=== PATIENT | male | born 1940 | race Caucasian/White ===

== ENCOUNTER 2023-05-06 11:16 | Emergency (ER) | payer MEDICARE ==
[2023-05-06] MEDS ORDERED: BUFFERED LIDOCAINE 10 ML SYRINGE SUBQ STA (11:57)
--- NOTE | 2023-05-06 11:59 | ED Physician Documentation ---
PD HPI WOUND RECHECK - Stated complaint Stated Complaint: LT FINGER LAC - Chief complaint Chief Complaint: Wound - Histroy obtained from History obtained from: Patient - Additional information Additional information: 83-year-old gentleman who is relatively healthy with history of remote bypass is in the process of moving up from [place]. About 3 days ago he cut himself while trimming his nails and developed an infection of the left third finger. He was placed on doxycycline and amoxicillin and has improved slightly but worsened as he had misplaced the antibiotics, but has since found them. There is minimal pain. PD PAST MEDICAL HISTORY - Past Medical History Past Medical History: Yes Cardiovascular: Other - Past Surgical History Past Surgical History: Yes Cardiovascular: CABG - Present Medications Home Medications: Ambulatory Orders Medication Instructions Recorded Confirmed cephALEXin [Keflex] 500 mg PO Q6H #28 cap 05/06/23 clindamycin HCL [Cleocin HCl] 300 mg PO QID #28 cap 05/06/23 - Allergies Allergies/Adverse Reactions: Allergies Allergy/AdvReac Type Severity Reaction Status Date / Time No Known Drug Allergies Allergy Verified 05/06/23 11:29 - Social History Does the pt smoke?: No Smoking Status: Never smoker Does the pt drink ETOH?: Yes Does the pt have substance abuse?: No - Immunizations Immunizations are current?: Yes - POLST Patient has POLST: No PD ED PE NORMAL - Vitals Vital signs reviewed: Yes - General General: Alert and oriented X 3, No acute distress - Extremities Extremities: Other (The left third finger is infected from the middle of the middle finger distally with shallow dorsal abscess. He is unable to bend at the DIP but does not have significant pain with range of motion of the DIP. No sign of flexor tenosynovitis.) - Neuro Neuro: Alert and oriented X 3 Results - Vitals Vitals: Vital Signs - 24 hr 05/06/23 11:23 Temperature 36.6 C Heart Rate 87 Respiratory 16 Rate Blood Pressure 140/60 H O2 Saturation 98 Oxygen O2 Source Room air Procedures - Abscess I&D (location) L 3rd finger Preparation: Lidocaine 1% (Digital block with buffered lidocaine with excellent anesthesia) Incision: Incised with scalpel (There was necrotic skin skin dorsally which was debrided with scalpel and scissors. A culture was done. It was not a deep abscess, it was just of the subcutaneous tissue. There was no apparent subungual component.) Other: Pt tolerated well (Dressed with Xeroform and tube gauze), Antibiotic prescribed (Ancef 1 g IM here and p.o. clindamycin) PD Medical Decision Making - ED course ED course: 83-year-old with a shallow but necrotic abscess of the dorsum of the left third finger. He was on doxycycline but misplaced it for a time and only took about 3 out of 6 doses so far. There is no evidence of osteomyelitis on the x-ray. There is gas but I do not think this represents a necrotizing soft tissue infection because he has minimal pain and the gas can be explained as it was already open a bit. Departure - Departure Disposition: 01 Home, Self Care Clinical Impression: Abscess of finger of left hand Condition: Good Record reviewed to determine appropriate education?: Yes Instructions: ED Abscess IandD Prescriptions: clindamycin HCL [Cleocin HCl] 300 mg PO QID #28 cap cephALEXin [Keflex] 500 mg PO Q6H #28 cap Comments: I sent the prescriptions for antibiotics electronically to the [facility] in [place]. Please fill them and start them tonight. I would like to see you for a wound check tomorrow sometime after 11:30 AM. Return sooner if worse. Keep it elevated is much as possible. We are performing a wound culture, the results should be done in 48-72 hours. If antibiotic change is necessary we will call you. Return if worse in the meantime, especially if you develop increased pain, fevers, cannot keep down the medication. Otherwise follow-up with your physician in approximately 2-3 days. Forms: PCP List
--- NOTE | 2023-05-06 12:21 | XRAY Report ---
PROCEDURE: Finger(s) LT INDICATIONS: 3rd finger infection TECHNIQUE: AP hand, 2 views of the third finger(s) acquired. COMPARISON: None. FINDINGS: Bones: No fractures or dislocations. No suspicious bony lesions. Age-appropriate degenerative stephenson es are seen. Soft tissues: Soft tissue swelling is seen of the third finger. No radiopaque foreign bodies are see n. Apparent soft tissue tissue gas can be seen along the proximal aspect of the third finger. IMPRESSION: Third finger soft tissue swelling, without an acute focal bony abnormality seen. Apparent soft tissue tissue gas can be seen along the proximal aspects of the third finger. If there is strong clinical concern for developing osteomyelitis in this patient with this given hist ory, then please consider a dedicated MRI (without and with contrast) for further evaluation (assumin g that there is no contraindication). Reviewed by: Álvaro Portillo MD on 05/06/2023 11:20 AM [facility] Approved by: Álvaro Portillo MD on 05/06/2023 11:20 AM [facility] Station ID: [id number]
[2023-05-06] MEDS ORDERED: ceFAZolin 1 GM VIAL IM STA (12:26)
[2023-05-06] MEDS ORDERED: SULFAMETH/TRIMETH DS 800/160 MG TABLET PO STA (12:26)
[2023-05-06 13:08] VITALS: BP 136/50; O2SAT 95
== END 2023-05-06 12:58 | disposition home or self-care (01) ==
LOC: ED 11:16
DX: L02.512 Cutaneous abscess of left hand (principal)
CPT/HCPCS: 11000; 73140; 87070; 87181; 87205; 96372; 99283; 99284; A9270

== ENCOUNTER 2023-05-07 12:41 | Emergency (ER) | payer MEDICARE ==
[2023-05-07 12:59] VITALS: BP 139/60; O2SAT 99
--- NOTE | 2023-05-07 13:10 | ED Physician Documentation ---
PD HPI WOUND RECHECK - Stated complaint Stated Complaint: LT FINGER WOUND CHECK - Chief complaint Chief Complaint: Wound - Histroy obtained from History obtained from: Patient - Additional information Additional information: I saw him yesterday for a broad shallow abscess of the left third finger and he returns as requested for a scheduled wound check. He feels improved. PD PAST MEDICAL HISTORY - Past Medical History Past Medical History: Yes Cardiovascular: Other - Past Surgical History Past Surgical History: Yes Cardiovascular: CABG - Present Medications Home Medications: Ambulatory Orders Medication Instructions Recorded Confirmed cephALEXin [Keflex] 500 mg PO Q6H #28 cap 05/06/23 clindamycin HCL [Cleocin HCl] 300 mg PO QID #28 cap 05/06/23 - Allergies Allergies/Adverse Reactions: Allergies Allergy/AdvReac Type Severity Reaction Status Date / Time No Known Drug Allergies Allergy Verified 05/06/23 11:29 - Social History Does the pt smoke?: No Smoking Status: Never smoker Does the pt drink ETOH?: Yes Does the pt have substance abuse?: No - Immunizations Immunizations are current?: Yes - POLST Patient has POLST: No PD ED PE NORMAL - Vitals Vital signs reviewed: Yes - General General: Alert and oriented X 3, No acute distress - Extremities Extremities: Other (The initial dressing was removed and overall the finger looks less cellulitic. There were a few other areas of necrotic skin that were sharply debrided, but much less than yesterday. It was redressed with Xeroform and tube gauze.) - Neuro Neuro: Alert and oriented X 3, Normal speech Results - Vitals Vitals: Vital Signs - 24 hr 05/07/23 12:44 Temperature 36.8 C Heart Rate 82 Respiratory 16 Rate Blood Pressure 139/60 H O2 Saturation 99 Oxygen O2 Source Room air Departure - Departure Disposition: Home, Self Care Clinical Impression: Abscess of finger of left hand Condition: Good Record reviewed to determine appropriate education?: Yes Instructions: ED Abscess IandD Comments: Overall I am happy with the appearance of the finger and it appears to be improving. Preliminary wound culture is growing Staph aureus which is the most common cause of skin and soft tissue infections. The sensitivities are not yet complete, but should be done tomorrow and we will call you if a change in antibiotics is necessary. You should probably have wound care again done on , you can either return here or go to the walk-in clinic for that. Return sooner if worse. Continue current antibiotics.
== END 2023-05-07 13:17 | disposition home or self-care (01) ==
LOC: ED 12:41
DX: L02.512 Cutaneous abscess of left hand (principal)
CPT/HCPCS: 99281; 99282

== ENCOUNTER 2023-05-09 15:45 | Emergency (ER) | payer MEDICARE ==
[2023-05-09 16:26] VITALS: BP 164/66; O2SAT 99
--- NOTE | 2023-05-09 18:50 | ED Physician Documentation ---
History of Present Illness - Stated complaint Stated Complaint: LT HAND INJ - Chief complaint Chief Complaint: General - History obtained from History obtained from: Patient - History of Present Illness Pain level max: 2 Pain level now: 2 - Additonal information Additional information: Patient is an 83-year-old male who has been seen here twice previously after a abscess drainage with necrosis of tissue to his finger. He states that the pain is decreasing, he feels like overall it is doing better. No fevers. No chills. He has not changed the bandage. He recently moved here from [place] and does not yet have a primary care provider. He is still taking his antibiotics. Review of Systems Constitutional: denies: Fever, Chills PD PAST MEDICAL HISTORY - Past Medical History Past Medical History: Yes Cardiovascular: Coronary artery disease, Other Respiratory: None Neuro: None HEENT: None Derm: None - Past Surgical History Past Surgical History: Yes Cardiovascular: CABG - Present Medications Home Medications: Ambulatory Orders Medication Instructions Recorded Confirmed cephALEXin [Keflex] 500 mg PO Q6H #28 cap 05/06/23 05/09/23 clindamycin HCL [Cleocin HCl] 300 mg PO QID #28 cap 05/06/23 05/09/23 - Allergies Allergies/Adverse Reactions: Allergies Allergy/AdvReac Type Severity Reaction Status Date / Time No Known Drug Allergies Allergy Verified 05/09/23 16:14 - Social History Does the pt smoke?: No Smoking Status: Never smoker Does the pt drink ETOH?: Yes Does the pt have substance abuse?: No - Immunizations Immunizations are current?: Yes - POLST Patient has POLST: No PD ED PE NORMAL - Vitals Vital signs reviewed: Yes - General General: Alert and oriented X 3, No acute distress - HEENT HEENT: Moist mucous membranes - Neck Neck: Supple, no meningeal sign - Derm Derm: Warm and dry - Extremities Extremities: Other (L 3rd finger - Open wound, granulation tissue present. No necrosis. No drainage. Neurovascular intact. Approximately a 2 x 3 cm area to the distal aspect of the finger.) - Neuro Neuro: Alert and oriented X 3 - Psych Psych: Normal mood, Normal affect Results - Vitals Vitals: Vital Signs - 24 hr 05/09/23 16:15 Temperature 36.9 C Heart Rate 57 L Respiratory 16 Rate Blood Pressure 164/66 H O2 Saturation 99 Oxygen O2 Source Room air PD Medical Decision Making - ED course Complexity details: reviewed old records, considered differential, d/w patient ED course: The old bandage was removed, Mepitel was placed against the wound bed. A clean dressing was then applied. We will have him continue his current antibiotics at home. Recommend that he follow-up closely with either the walk-in clinic, and a primary care provider if [facility] cannot find one for him or with the orthopedist. He is on clindamycin and his wound culture is sensitive to that. There is no evidence of infection currently. No drainage. Neurovascular intact. Patient counseled regarding signs and symptoms for which I believe and urgent re- evaluation would be necessary. Patient with good understanding of and agreement to plan and is comfortable going home at this time This document was made in part using voice recognition software. While efforts are made to proofread this document, sound alike and grammatical errors may occur. Departure - Departure Disposition: 01 Home, Self Care Clinical Impression: Abscess of finger of left hand Condition: Good Instructions: ED Bandage Change, ED Wound Care Follow-Up: [facility] [Provider Group] - Within 1 week Comments: Continue your current medications at home including your current antibiotics. Your dressings were changed today. The Mepitel, the bottom layer, will stay in place for 1 week. Either return here to have it changed or follow-up with orthopedics for wound care. Please return if you worsen. Return for fevers, chills, increasing drainage or increasing redness or swelling. Forms: PCP List Discharge Date/Time: 05/09/23 19:04
== END 2023-05-09 19:04 | disposition home or self-care (01) ==
LOC: ED 15:45
DX: L02.512 Cutaneous abscess of left hand (principal)
CPT/HCPCS: 99282

== ENCOUNTER 2023-05-12 14:48 | Emergency (ER) | payer MEDICARE ==
--- NOTE | 2023-05-12 15:12 | ED Physician Documentation ---
PD HPI WOUND RECHECK - Stated complaint Stated Complaint: LT FINGER CLOTH REMOVAL - Chief complaint Chief Complaint: Ext Problem - Histroy obtained from History obtained from: Patient - Additional information Additional information: Patient is an 83-year-old male presenting for evaluation of wound check to his left middle digit. He was initially seen on May 06 and had an incision and drainage of an abscess to the finger. He was seen the following day for wound recheck. He has been on clindamycin. He was previously prescribed doxycycline from the walk-in clinic. He was also prescribed cephalexin.His culture grew out staph which is sensitive to clindamycin. He was seen here again on May 09 with another dressing change and has come here today to have his bandage changed as he states his has Alzheimer's is unable to do it and he is not able to do it himself. He recently moved here from [place] and has [employer] insurance but does not yet have a primary care provider. He reports that the finger feels better and he has not had any abnormal drainage from the wound. Review of Systems Constitutional: denies: Fever PD PAST MEDICAL HISTORY - Past Medical History Past Medical History: Yes Cardiovascular: Coronary artery disease, Other Respiratory: None Neuro: None HEENT: None Derm: None - Past Surgical History Past Surgical History: Yes Cardiovascular: CABG - Present Medications Home Medications: Ambulatory Orders Medication Instructions Recorded Confirmed cephALEXin [Keflex] 500 mg PO Q6H #28 cap 05/06/23 05/09/23 clindamycin HCL [Cleocin HCl] 300 mg PO QID #28 cap 05/06/23 05/09/23 - Allergies Allergies/Adverse Reactions: Allergies Allergy/AdvReac Type Severity Reaction Status Date / Time No Known Drug Allergies Allergy Verified 05/09/23 16:14 - Social History Does the pt smoke?: No Smoking Status: Never smoker Does the pt drink ETOH?: Yes Does the pt have substance abuse?: No - Immunizations Immunizations are current?: Yes - POLST Patient has POLST: No PD ED PE NORMAL - General General: Alert and oriented X 3, No acute distress, Well developed/nourished - HEENT HEENT: Atraumatic - Cardiac Cardiac: Strong equal pulses - Derm Derm: Warm and dry - Extremities Extremities: Other (Left middle digit: Open wound to the dorsum of the finger distally from the DIP to the nailbed With well-appearing granulation tissue, no necrosis, no abnormal drainage, no fluctuance, no surrounding erythema, good range of motion at all digits, brisk cap refill) Results - Vitals Vitals: Vital Signs - 24 hr 05/12/23 05/12/23 14:52 15:35 Temperature 36.6 C Heart Rate 75 70 Respiratory 15 16 Rate Blood Pressure 145/69 H 148/72 H O2 Saturation 96 97 Oxygen O2 Source Room air PD Medical Decision Making - ED course ED course: Patient is an 83-year-old male presenting for evaluation of a wound check to his left middle digit. He did have an abscess there that was incised and drained on the . He has been on clindamycin since and cultures show that organism is sensitive to this. He is having difficulty in doing his own dressing changes and thus has presented here. Wound is well appearing with good granulation tissue, no signs of continued infection. Has good range of motion. New dressing was placed and patient counseled on need for outpatient follow- up.Patient advised on concerning symptoms to return for. Departure - Departure Disposition: 01 Home, Self Care Clinical Impression: Wound check, abscess Condition: Stable Instructions: Wound Care Follow-Up: [facility] [Provider Group] Comments: We have placed a new dressing on your wound. It appears to be healing well and I think you are responding well to the antibiotic. Please complete the course of clindamycin. You do not need to take the other 2 antibiotics as the clindamycin should take care of this infection. I would recommend close follow- up with a primary care provider or at the orthopedic clinic or walk-in clinic. Please call [facility] for close follow-up. Forms: PCP List Discharge Date/Time: 05/12/23 15:35
[2023-05-12 15:41] VITALS: BP 148/72; O2SAT 97
== END 2023-05-12 15:35 | disposition home or self-care (01) ==
LOC: ED 14:48
DX: Z48.01 Encounter for change or removal of surgical wound dressing (principal)
CPT/HCPCS: 99282

== ENCOUNTER 2023-05-13 11:43 | Emergency (ER) | payer MEDICARE ==
[2023-05-13 12:11] VITALS: BP 135/71; O2SAT 97
[2023-05-13] MEDS ORDERED: BACITRACIN ZINC OINT 1 PACKET TOP STA (14:07)
--- NOTE | 2023-05-13 14:09 | ED Physician Documentation ---
PD HPI WOUND RECHECK - Stated complaint Stated Complaint: LFT MIDDLE FINGER LACERATION - Chief complaint Chief Complaint: General - Histroy obtained from History obtained from: Patient - Additional information Additional information: Patient is an 83-year-old male presenting for wound check to his left middle digit. He was initially seen May 06 with an I&D of an abscess to the finger. He has subsequently been seen 3 other times for wound checks and dressing help. He has a day of clindamycin left. He states that the dressing reapplied yesterday loosened and he was unable to get it back on. He was able to put a Band-Aid over the area. He recently moved here from [place] but does not have a PCP. Review of Systems Constitutional: denies: Fever Musculoskeletal: denies: Extremity pain PD PAST MEDICAL HISTORY - Past Medical History Past Medical History: Yes Cardiovascular: Coronary artery disease, Other Respiratory: None Neuro: None HEENT: None Derm: None - Past Surgical History Past Surgical History: Yes Cardiovascular: CABG - Present Medications Home Medications: Ambulatory Orders Medication Instructions Recorded Confirmed cephALEXin [Keflex] 500 mg PO Q6H #28 cap 05/06/23 05/09/23 clindamycin HCL [Cleocin HCl] 300 mg PO QID #28 cap 05/06/23 05/09/23 Bacitracin Zinc Oint 1 applic TOP BID #1 each 05/13/23 - Allergies Allergies/Adverse Reactions: Allergies Allergy/AdvReac Type Severity Reaction Status Date / Time No Known Drug Allergies Allergy Verified 05/09/23 16:14 - Social History Does the pt smoke?: No Smoking Status: Never smoker Does the pt drink ETOH?: Yes Does the pt have substance abuse?: No - Immunizations Immunizations are current?: Yes - POLST Patient has POLST: No PD ED PE NORMAL - General General: Alert and oriented X 3, No acute distress, Well developed/nourished - HEENT HEENT: Atraumatic - Cardiac Cardiac: Strong equal pulses - Respiratory Respiratory: No respiratory distress - Extremities Extremities: Other (Left middle finger: Open wound to the dorsum of the finger distally from the DIP to the nailbed, well-appearing granulation tissue, no necrosis, no abnormal drainage, no fluctuance or erythema, good range of motion of the digit; Brisk cap refill) Results - Vitals Vitals: Vital Signs - 24 hr 05/13/23 11:56 Temperature 36.3 C L Heart Rate 95 Respiratory 15 Rate Blood Pressure 135/71 H O2 Saturation 97 Oxygen O2 Source Room air PD Medical Decision Making - ED course ED course: Patient is an 83-year-old male presenting for evaluation of wound check. Appears to be having difficulty with gauze dressings we have been placing for him. The wound is well-healing with no signs of necrosis or ongoing infection. Will have patient use bacitracin and a bandage covering as needed but will allow him to wash with warm soapy water and keep the wound clean and dry. Patient feels that he would be able to manage this. He is counseled on concerning symptoms to return for. Departure - Departure Disposition: 01 Home, Self Care Clinical Impression: Visit for wound check Condition: Stable Prescriptions: Bacitracin Zinc Oint 1 applic TOP BID #1 each Comments: The wound on your finger is healing well. To make it easier on your self I think we should continue with just an antibiotic ointment called bacitracin and a Band-Aid. You can wash the hand using soapy water. Just make sure to keep it dry after washing it. I would recommend still follow-up with a primary care provider but at this time I do not see signs of any necrotic tissue that needs further cleaning or ongoing infection. Please take the last doses of your antibiotic. Return to the ER with worsening symptoms such as concerns for another infection. I have sent a prescription for the antibiotic ointment to [facility] in [place]. Do not use Neosporin as this can be irritating to the skin. Forms: PCP List Discharge Date/Time: 05/13/23 14:19
== END 2023-05-13 14:19 | disposition home or self-care (01) ==
LOC: ED 11:43
DX: S61.213D Laceration without foreign body of left middle finger without damage to nail, subsequent encounter (principal); W45.8XXD Other foreign body or object entering through skin, subsequent encounter
CPT/HCPCS: 99282

== ENCOUNTER 2023-06-29 08:02 | Outpatient (CLI) | payer MEDICARE | END 2023-06-29 08:03 | disposition EMS.NT | LOC: EMS 08:02 | DX: R53.1 Weakness (principal) | CPT/HCPCS: A0425; A0429 ==

== ENCOUNTER 2023-06-29 08:06 | Emergency (ER) | payer MEDICARE ==
[2023-06-29] MEDS: SODIUM CHLORIDE 0.9% 1,000 ML IV STA ×2 (08:25→10:06)
[2023-06-29 08:28] LABS: BASOPHILS # (AUTO) 0.1 10^3/uL (0.0-0.1); BASOPHILS % (AUTO) 0.4 %; EOSINOPHILS % (AUTO) 0.1 %; HCT - HEMATOCRIT 45.1 % (42.0-52.0); HGB - HEMOGLOBIN 14.9 g/dL (14.0-18.0); LYMPHOCYTES # (AUTO) 0.2 10^3/uL (1.5-3.5); LYMPHOCYTES % (AUTO) 1.4 %; MEAN CORPUSCULAR VOLUME 90.7 fL (80.0-94.0); MEAN PLATELET VOLUME 8.5 fL (7.4-11.4); MONOCYTES # (AUTO) 0.9 10^3/uL (0.0-1.0); MONOCYTES % (AUTO) 5.2 %; NEUTROPHILS # (AUTO) 15.5 10^3/uL (1.5-6.6); NEUTROPHILS % (AUTO) 92.3 %; PLT - PLATELET COUNT 94 10^3/uL (130-450); RED BLOOD COUNT 4.97 10^6/uL (4.70-6.10); RED CELL DISTRIBUTION WIDTH 14.1 % (12.0-15.0); WHITE BLOOD COUNT 16.7 x10^3/uL (4.8-10.8)
[2023-06-29 08:41] LABS: ALBUMIN/GLOBULIN RATIO 1.3 (1.0-2.2); ALKALINE PHOSPHATASE 59 IU/L (42-121); ALT ALANINE AMINOTRANSFERASE 20 IU/L (10-60); AST ASPARTATE AMINOTRANSFERASE 27 IU/L (10-42); BILIRUBIN,TOTAL 2.4 mg/dL (0.2-1.0); BUN - BLOOD UREA NITROGEN 19 mg/dL (6-20); CALCIUM 9.8 mg/dL (8.5-10.3); CARBON DIOXIDE - CO2 29 mmol/L (21-32); CHLORIDE 102 mmol/L (101-111); CREATININE 1.2 mg/dL (0.6-1.3); GFR - MDRD 58 (>89); GLUCOSE 116 mg/dL (74-104); POTASSIUM 3.6 mmol/L (3.5-4.5); SODIUM 138 mmol/L (135-145); TOTAL PROTEIN 7.2 g/dL (6.4-8.9)
[2023-06-29 08:42] LABS: LIPASE < 10 U/L (11-82)
--- NOTE | 2023-06-29 08:42 | ED Physician Documentation ---
History of Present Illness - Stated complaint Stated Complaint: WEAKNESS - Chief complaint Chief Complaint: General - History obtained from History obtained from: Patient, EMS - Additonal information Additional information: The patient is brought to the emergency department by EMS after feeling weak this morning and sliding out of bed while trying to get up. The patient states he felt okay yesterday, but not quite up to his usual self. He cannot really be more specific. He states he has not slept well the last couple of nights and that he often feels "off" when he does not sleep well. The patient states that he has not had any specific other symptoms. No nausea vomiting or diarrhea. No cough or fever/chills. No chest pain or shortness of breath. He states that he slid slowly out of bed and did not hit his head on anything. He states he did not even really sit down hard. He is on Xarelto for history of coronary artery disease with bypass done October of years ago in [place]. The patient states he lives at home with his , who has dementia. No other complaints at this time. PD PAST MEDICAL HISTORY - Past Medical History Past Medical History: Yes Cardiovascular: Coronary artery disease, Other Respiratory: None Neuro: None HEENT: None Derm: None - Past Surgical History Past Surgical History: Yes Cardiovascular: CABG - Present Medications Home Medications: Ambulatory Orders Medication Instructions Recorded Confirmed cephALEXin [Keflex] 500 mg PO Q6H #28 cap 05/06/23 05/09/23 clindamycin HCL [Cleocin HCl] 300 mg PO QID #28 cap 05/06/23 05/09/23 Bacitracin Zinc Oint 1 applic TOP BID #1 each 05/13/23 - Allergies Allergies/Adverse Reactions: Allergies Allergy/AdvReac Type Severity Reaction Status Date / Time No Known Drug Allergies Allergy Verified 06/29/23 08:22 - Social History Does the pt smoke?: No Smoking Status: Never smoker Does the pt drink ETOH?: Yes Does the pt have substance abuse?: No - Immunizations Immunizations are current?: Yes - POLST Patient has POLST: No PD ED PE NORMAL - Vitals Vital signs reviewed: Yes - General General: No acute distress, Well developed/nourished, Other (Alert, answers questions mostly appropriately, though occasionally with off-topic responses.) - HEENT HEENT: Atraumatic, PERRL, EOMI, Moist mucous membranes - Cardiac Cardiac: RRR, No murmur - Respiratory Respiratory: No respiratory distress, Clear bilaterally - Abdomen Abdomen: Soft, Non tender, Non distended - Back Back: No spinal TTP - Derm Derm: Normal color, Warm and dry, No rash - Extremities Extremities: No deformity, No edema - Neuro Neuro: Alert and oriented X 3 - Psych Psych: Normal mood, Normal affect Results - Vitals Vitals: Vital Signs - 24 hr 06/29/23 06/29/23 06/29/23 08:22 10:26 11:13 Temperature 36.6 C 37.0 C Heart Rate 100 88 83 Respiratory 15 14 13 Rate Blood Pressure 136/84 H 131/62 H 124/60 O2 Saturation 97 97 95 06/29/23 12:14 Temperature Heart Rate 88 Respiratory 17 Rate Blood Pressure 120/68 O2 Saturation 96 Oxygen O2 Source Room air - EKG (time done) 0822 EKG releavant findings:: EKG personally interpreted by author of this note. Relevant findings are: Rate: Rate (enter#) (95) Rhythm: NSR, LAE Devine: LAD (Borderline) Intervals: Normal ME QRS: Normal Ischemia: Normal ST segments, Non specific changes Compare to prior EKG: Old EKG unavailable Computer interpretation: Agree with computer - Labs Labs: Laboratory Tests 06/29/23 06/29/23 06/29/23 08:23 08:23 10:04 WBC 16.7 H RBC 4.97 Hgb 14.9 Hct 45.1 MCV 90.7 MCH 30.0 MCHC 33.0 RDW 14.1 Plt Count 94 L MPV 8.5 Neut # (Auto) 15.5 H Lymph # (Auto) 0.2 L [place] # (Auto) 0.9 Eos # (Auto) 0.0 Baso # (Auto) 0.1 Absolute Nucleated RBC 0.00 Nucleated RBC % 0.0 Sodium 138 Potassium 3.6 Chloride 102 Carbon Dioxide 29 Anion Gap 7.0 BUN 19 Creatinine 1.2 Estimated GFR (MDRD) 58 L Glucose 116 H Calcium 9.8 Total Bilirubin 2.4 H AST 27 ALT 20 Alkaline Phosphatase 59 Total Protein 7.2 Albumin 4.0 Globulin 3.2 Albumin/Globulin Ratio 1.3 Lipase < 10 L Urine Color DARK YELLOW Urine Clarity CLEAR Urine pH 7.5 Ur Specific Bern 1.015 Urine Protein NEGATIVE Urine Glucose (UA) NEGATIVE Urine Ketones TRACE Urine Occult Blood TRACE-LYSE Urine Nitrite NEGATIVE Urine Bilirubin NEGATIVE Urine Urobilinogen 0.2 (NORMAL) Ur Leukocyte Esterase NEGATIVE Ur Microscopic Review NOT INDICATED Urine Culture Comments NOT INDICATED Nasal Adenovirus (PCR) Nasal B. parapertussis DNA (PCR) Nasal Coronavir 229E PCR Nasal Coronavir HKU1 PCR Nasal Coronavir NL63 PCR Nasal Coronavir OC43 PCR Nasal Enterovir/Rhinovir PCR Nasal Influenza B PCR Nasal Influenza A PCR Nasal Parainfluen 1 PCR Nasal Parainfluen 2 PCR Nasal Parainfluen 3 PCR Nasal Parainfluen 4 PCR Nasal RSV (PCR) Nasal B.pertussis DNA PCR Nasal C.pneumoniae (PCR) Ba Human Metapneumo PCR Nasal M.pneumoniae (PCR) Nasal SARS-CoV-2 (PCR) 06/29/23 10:43 WBC RBC Hgb Hct MCV MCH MCHC RDW Plt Count MPV Neut # (Auto) Lymph # (Auto) [place] # (Auto) Eos # (Auto) Baso # (Auto) Absolute Nucleated RBC Nucleated RBC % Sodium Potassium Chloride Carbon Dioxide Anion Gap BUN Creatinine Estimated GFR (MDRD) Glucose Calcium Total Bilirubin AST ALT Alkaline Phosphatase Total Protein Albumin Globulin Albumin/Globulin Ratio Lipase Urine Color Urine Clarity Urine pH Ur Specific Bern Urine Protein Urine Glucose (UA) Urine Ketones Urine Occult Blood Urine Nitrite Urine Bilirubin Urine Urobilinogen Ur Leukocyte Esterase Ur Microscopic Review Urine Culture Comments Nasal Adenovirus (PCR) NOT DETECTED Nasal B. parapertussis DNA (PCR) NOT DETECTED Nasal Coronavir 229E PCR NOT DETECTED Nasal Coronavir HKU1 PCR NOT DETECTED Nasal Coronavir NL63 PCR NOT DETECTED Nasal Coronavir OC43 PCR NOT DETECTED Nasal Enterovir/Rhinovir PCR NOT DETECTED Nasal Influenza B PCR NOT DETECTED Nasal Influenza A PCR NOT DETECTED Nasal Parainfluen 1 PCR NOT DETECTED Nasal Parainfluen 2 PCR NOT DETECTED Nasal Parainfluen 3 PCR NOT DETECTED Nasal Parainfluen 4 PCR NOT DETECTED Nasal RSV (PCR) NOT DETECTED Nasal B.pertussis DNA PCR NOT DETECTED Nasal C.pneumoniae (PCR) NOT DETECTED Ba Human Metapneumo PCR NOT DETECTED Nasal M.pneumoniae (PCR) NOT DETECTED Nasal SARS-CoV-2 (PCR) NOT DETECTED PD Medical Decision Making - ED course Complexity details: reviewed old records, reviewed results, re-evaluated patient, considered differential, d/w patient ED course: The patient was bright and alert in the emergency department and overall appeared fairly well. He did have occasional brief instances of giving off topic answers to questions, but mostly answered questions appropriately. He was treated with IV fluids and worked up with EKG and labs. The patient had no larry dence of trauma anywhere and clearly reported not hitting his head. The patient was ambulatory in the emergency department with a walker after IV fluid administration. His workup was unremarkable. Patient requested a refill of his Xarelto but cannot remember the dose so he stated he would call back to the emergency department and I have agreed to send his Xarelto prescription to the pharmacy of his choice once I know the dose that he is on. I have emphasized the importance of getting set up with primary care, as the patient has already been in [place] for at least couple of months and is still going through the process. He was established with [facility] in [place] and is in the process of getting set up with [facility] here, he states. We have discussed portance of primary care follow-up and the usual indications for return. Departure - Departure Disposition: 01 Home, Self Care Clinical Impression: Generalized weakness, Dehydration Condition: Stable Instructions: ED Dehydration, ED Weakness [facility] Comments: You were treated with 2 L of IV fluid in the emergency department today. Your laboratory studies and urinalysis all look good. It is not clear why you felt so weak this morning, but you have been able to walk through the emergency department without difficulty and are stable for discharge home at this time. Please follow-up with your primary doctor for any further concerns. Be sure you are drinking plenty of water each day to stay hydrated, as this will prevent the weakness that you have been dealing with recently. Forms: PCP List
[2023-06-29 10:11] LABS: BILIRUBIN,URINE NEGATIVE (NEGATIVE); GLUCOSE, URINE (UA) NEGATIVE (NEGATIVE); KETONES,URINE (UA) TRACE mg/dL (NEGATIVE); LEUKOCYTE ESTERASE, URINE NEGATIVE (NEGATIVE); NITRITE,URINE NEGATIVE (NEGATIVE); OCCULT BLOOD,URINE TRACE-LYSE (NEGATIVE); PH,URINE 7.5 PH (5.0-7.5); PROTEIN,URINE NEGATIVE (NEGATIVE); UROBILINOGEN,URINE 0.2 (NORMAL) E.U./dL (NORMAL)
[2023-06-29 10:12] LABS: CLARITY,URINE CLEAR (CLEAR)
[2023-06-29 11:39] LABS: B. PARAPERTUSSIS- RESP PCR PAN NOT DETECTED; B. PERTUSSIS- RESP PCR PANEL NOT DETECTED; C. PNEUMONIAE- RESP PCR PANEL NOT DETECTED; CORONAVIRUS 229E-RESP PCR NOT DETECTED; CORONAVIRUS HKU1-RESP PCR NOT DETECTED; CORONAVIRUS NL63-RESP PCR NOT DETECTED; CORONAVIRUS OC43-RESP PCR NOT DETECTED; HUMAN METAPNEUMOVIRUS NOT DETECTED; INFLUENZA A- RESP PCR PANEL NOT DETECTED; INFLUENZA B - RESP PCR PANEL NOT DETECTED; M. PNEUMONIAE- RESP PCR PANEL NOT DETECTED; PARAINFLUENZA VIRUS 1 NOT DETECTED; PARAINFLUENZA VIRUS 2 NOT DETECTED; PARAINFLUENZA VIRUS 3 NOT DETECTED; PARAINFLUENZA VIRUS 4 NOT DETECTED; RHINOVIRUS/ENTEROVIRUS NOT DETECTED; RSV- RESP PCR PANEL NOT DETECTED; SARS-CoV-2 -RESP PCR PANEL NOT DETECTED
[2023-06-29 12:21] VITALS: O2SAT 96
[2023-06-29 13:59] VITALS: BP 103/65
== END 2023-06-29 13:50 | disposition home or self-care (01) ==
LOC: EDUNIT# → ED 08:06
DX: R53.1 Weakness (principal); E86.0 Dehydration; I25.810 Atherosclerosis of coronary artery bypass graft(s) without angina pectoris; Z95.1 Presence of aortocoronary bypass graft; Z79.01 Long term (current) use of anticoagulants; Z79.899 Other long term (current) drug therapy
CPT/HCPCS: 36415; 80053; 81001; 81003; 83690; 85025; 87086; 87633; 93005; 96360; 96361; 99284

== ENCOUNTER 2023-07-18 20:16 | Outpatient (CLI) | payer MEDICARE | END 2023-07-18 23:59 | disposition left against medical advice (07) | LOC: EMS 20:16 | DX: R41.0 Disorientation, unspecified (principal) ==

== ENCOUNTER 2023-08-25 13:24 | Outpatient (CLI) | payer MEDICARE | END 2023-08-25 23:59 | disposition left against medical advice (07) | LOC: EMS 13:24 | DX: R42 Dizziness and giddiness (principal); R11.0 Nausea; I10 Essential (primary) hypertension; Z79.01 Long term (current) use of anticoagulants ==